=== PATIENT | female | born 1990 ===

== ENCOUNTER 2017-07-18 14:04 | Emergency (ER) | payer OTHER ==
[2017-07-18 14:18] VITALS: TEMP 98.3; O2SAT 98
[2017-07-18] MEDS ORDERED: TDAP Vaccine 0.5 mL Syr IM ONE (15:07)
--- NOTE | 2017-07-18 15:09 | ED PDOC ---
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 Patient stated she cut finger after opening a can. Last tetanus is UKN. Patient noted she has FROM right index finger. Time/Duration: Prior to Arrival Context: Home Past Medical History - Provider Review Nursing Documentation Reviewed: Yes - Psychiatric Hx Psychophysiologic Disorder: No Hx Substance Use: No - Surgical History Hx Angioplasty: Yes Hx Eye Surgery: Yes Family/Social History - Physician Review Nursing Documentation Reviewed: Yes Family/Social History: Other (noncontributory) Smoking Status: Never Smoked Hx Alcohol Use: Yes Frequency of alcohol use: Socially Hx Substance Use: No Allergies/Home Meds Allergies/Adverse Reactions: Allergies No Known Allergies Allergy (Verified 07/18/17 14:15) Home Medications: Home Meds Medication Instructions Recorded Confirmed No Known Home Med 07/18/17 07/18/17 Review of Systems - Review of Systems Constitutional: Normal. absent: Fatigue, Weight Change, Fevers, Night Sweats Eyes: Normal ENT: Normal Respiratory: Normal Cardiovascular: Normal Gastrointestinal: Normal Genitourinary Female: Normal Musculoskeletal: Other (right index finger laceration) Skin: Normal Neurological: Normal Endocrine: Normal Hemo/Lymphatic: Normal Psychiatric: Normal Physical Exam Vital Signs Temp Pulse Resp BP Pulse Ox 07/18/17 14:15 98.3 F 60 16 108/69 98 Temperature: Afebrile Blood Pressure: Normal Pulse: Regular Respiratory Rate: Normal Appearance: Positive for: Well-Appearing, Non-Toxic, Comfortable Pain Distress: None Mental Status: Positive for: Alert and Oriented X 3 - Systems Exam Head: Present: Atraumatic, Normocephalic Pupils: Present: PERRL Extroacular Muscles: Present: EOMI Conjunctiva: Present: Normal Mouth: Present: Moist Mucous Membranes Upper Extremity: Present: Normal ROM, NORMAL PULSES, Neurovascularly Intact, Capillary Refill < 2s, Other ((+) 1.5 cm laceration over right dorsal index finger, located 1/2 cm distal from PIPJ, no active bleeding). No: Cyanosis, Tenderness, Swelling, Erythema, Temperature Abnormalties Lower Extremity: Present: Normal Inspection, NORMAL PULSES, Normal ROM Neurological: Present: GCS=15, CN II-XII Intact, Speech Normal, Motor Func Grossly Intact, Normal Sensory Function, Normal Cerebellar Funct, Gait Normal Skin: Present: Warm, Dry, Normal Color, Laceration (see UE). No: Rashes Psychiatric: Present: Alert, Oriented x 3 Medical Decision Making ED Course and Treatment: 07/18/17 15:37 Re-evaluation. Patient feels better. Discussed results and plan with patient who expresses understanding. All questions answered and there is agreement with the plan to discharge home with instructions. Patient stable for discharge. Return if symptoms persist or worsen. Re-evaluation Time: 15:38 Reassessment Condition: Re-examined, Improved - Medication Orders Current Medication Orders: Discontinued Medications Tetanus/Reduced Diphtheria/Acell Pertussis (Boostrix Vaccine Inj) 0.5 ml IM .ONCE ONE Stop: 07/18/17 15:08 Last Admin: 07/18/17 15:35 Dose: 0.5 ml MAR Immunization Data Document 07/18/17 15:35 GMD (Rec: 07/18/17 15:35 [facility]MD [facility] [id number]) Immunization Data Vaccine Information Sheet Given No Immunization Registry Document 07/18/17 15:35 GMD (Rec: 07/18/17 15:35 GMD [facility] [id number]) Immunization Registry Consent Date 07/18/17 - Procedure PROCEDURE NOTE (Text): 07/18/17 15:38 Under sterile technique, wound was power irrigated with 60 cc of NS. Wound was located right index finger. Chromic Gut, 6-0, single layer, 3 sutures, approx. 2 cm. No blood loss. patient tolerated procedure well Disposition/Present on Arrival - Present on Arrival Any Indicators Present on Arrival: No History of DVT/PE: No History of Uncontrolled Diabetes: No Urinary Catheter: No History of Decub. Ulcer: No History Surgical Site Infection Following: None - Disposition Have Diagnosis and Disposition been Completed?: Yes Diagnosis: Finger laceration Disposition: HOME/ ROUTINE Disposition Time: 15:40 Patient Plan: Discharge Condition: GOOD Discharge Instructions (ExitCare): Finger Laceration (ED) Additional Instructions: Call private doctor for follow visit in 2-3 days for wound check . Keep wound clean and dry for 2 days, then clean wound with soap and water daily. Sutures are absorbable, so they do not need to be removed. Return to emergency if wound become painful, redness, or discharge Referrals: Sean Rodriguez Jr., MD [Primary Care Provider] - Follow up with primary Forms: [employer] ([place])
[2017-07-18 15:40] VITALS: BP 124/72; PULSE 78; RESP 18
== END 2017-07-18 15:46 | disposition home or self-care (01) ==
LOC: ED 14:04 → MERGE 14:04 → ED 15:46
DX: S61.210A Laceration without foreign body of right index finger without damage to nail, initial encounter (principal); W26.8XXA Contact with other sharp object(s), not elsewhere classified, initial encounter; Y92.009 Unspecified place in unspecified non-institutional (private) residence as the place of occurrence of the external cause; Z23 Encounter for immunization